=== PATIENT | male | born 1970 | race Caucasian/White ===

== ENCOUNTER 2024-04-03 15:00 | Emergency (ER) | payer BC ==
[2024-04-03 17:03] VITALS: TEMP 98.3; O2SAT 97
--- NOTE | 2024-04-03 17:19 | ERPHSYRPT ---
- History of Present Illness Time Seen by Provider: 04/03/24 17:19 Source: patient Exam Limitations: no limitations Patient Subjective Stated Complaint: Pt. states, "I've been fighting this cough since 03/31 and it just won't go away. My ribs are sore." Triage Nursing Assessment: A&Ox3, skin P/W/D resp even unlabored, in NAD, sl. SOB Physician History: He presents with flu-like symptoms. His symptoms began the day after Deejay. Initially, he thought he was improving, but symptoms worsened last night. He has experienced a fever for three days, accompanied by episodes of sweating. He is unsure of the exact temperature but describes it as significant enough to cause sweating. He reports soreness in the rib area, likely due to persistent coughing, and experiences mild shortness of breath. He has felt dizzy a few times since the onset of symptoms. He has had a couple of episodes of vomiting and diarrhea, primarily on Thursday night, with diarrhea occurring on the first day of symptoms but not since. He is currently taking Mucinex pills and liquid, as well as Nyquil. Timing/Duration: day(s) (3) Cough Quality/Degree: moderate, productive cough Possible Cause: no prior episodes Modifying Factors: Improves With: nothing. Worsens With: activity, coughing, deep breath Associated Symptoms: fever, chills, chest pain/soreness, cough, shortness of breath Allergies/Adverse Reactions: Penicillins Allergy (Unknown, Verified 06/23/15 02:57) cephalexin [From Keflex] Allergy (Verified 04/03/24 17:04) Home Medications: carvediloL [Carvedilol] 6.25 mg PO DAILY 04/03/24 [History] Hx Tetanus, Diphtheria Vaccination/Date Given: No Hx Influenza Vaccination/Date Given: No Hx Pneumococcal Vaccination/Date Given: No Immunizations Up to Date: No Travel Risk - International Travel Have you traveled outside of the country in past 3 weeks: No - Emerging Infectious Disease Are you exhibiting symptoms associated with any current EIDs: Yes Symptoms: Cough: New Onset - Review of Systems All Other Systems: Reviewed and Negative - Past Medical History Pertinent Past Medical History: Yes Neurological History: No Pertinent History Cardiac History: Hypertension Respiratory History: No Pertinent History Endocrine Medical History: No Pertinent History Musculoskeletal History: Arthritis Other Medical History: HIGH LIVER ENZYMES WITH FURTHER TESTING TO BE COMPLETED. 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 - Social History Smoking Status: Former smoker Exposure to second hand smoke: Yes Drug Use: none Patient Lives Alone: No - Social Determinants of Health Will the patient participate in the screening: Yes Do you worry about a steady place to live?: No Do you have any problems with any of the following?: No known problems In the past 12 months,have you had to go without utilities?: No Transportation Issues: No Has anyone in your support network made you feel unsafe?: No Have you or anyone in your house had to go without enough: No - Nursing Vital Signs Nursing Vital Signs: Initial Vital Signs Temperature 98.3 F 04/03/24 16:53 Pulse Rate 81 04/03/24 16:53 Respiratory Rate 18 04/03/24 16:53 Blood Pressure 144/88 04/03/24 16:53 O2 Sat by Pulse Oximetry 97 04/03/24 16:53 Pain Scale Pain Intensity 0 - Physical Exam General Appearance: no apparent distress Eye Exam: eyes nml inspection Ears, Nose, Throat Exam: normal ENT inspection Neck Exam: normal inspection, supple, full range of motion Respiratory Exam: airway intact, rhonchi, No respiratory distress Cardiovascular Exam: regular rate/rhythm, capillary refill <2 sec Gastrointestinal/Abdomen Exam: soft, No tenderness, No distention, No mass, No guarding Neurologic Exam: alert, oriented x 3, cooperative Skin Exam: normal color, warm, dry, No rash SpO2 Interpretation: normal SpO2: 97 O2 Delivery: Room Air - Course Nursing assessment & vital signs reviewed: Yes - Radiology Exams Chest X-ray Interpretation: Interpreted by me, Pneumonia (bilateral ground glass) Ordered Tests: Active Orders 24 hr Category Date Time Status CHEST 1 VIEW (PORTABLE) Stat Exams 04/03/24 17:18 Completed Medication Summary Discontinued Medications Generic Name Dose Route Start Last Admin Trade Name Freq PRN Reason Stop Dose Admin Hydrocodone Bitart/Acetaminophen 5 ml 04/03/24 17:53 04/03/24 18:02 Hydrocodone/Acetaminophen 5 Ml Udcup PO 04/03/24 17:54 5 ml STAT STA Administration Hydrocodone Bitart/Acetaminophen Confirm 04/03/24 18:01 Hydrocodone/Acetaminophen 5 Ml Udcup Administered 04/03/24 18:02 Dose 5 ml .ROUTE .STK-MED ONE Hydrocodone Bitart/Acetaminophen 5 ml 04/03/24 18:37 04/03/24 18:42 Hydrocodone/Acetaminophen 5 Ml Udcup PO 04/08/24 18:36 15 ml Q6HPRN PRN Administration COUGH Hydrocodone Bitart/Acetaminophen Confirm 04/03/24 18:41 Hydrocodone/Acetaminophen 5 Ml Udcup Administered 04/03/24 18:42 Dose 15 ml .ROUTE .STK-MED ONE Azithromycin 500 mg 04/04/24 10:00 04/03/24 17:48 Azithromycin 250 Mg Tablet PO 05/04/24 09:59 500 mg DAILY SUSAN Administration Azithromycin Confirm 04/03/24 17:47 Azithromycin 250 Mg Tablet Administered 04/03/24 17:48 Dose 500 mg .ROUTE .STK-MED ONE Ketorolac Tromethamine 10 mg 04/03/24 17:19 04/03/24 17:36 Ketorolac Tromethamine 10 Mg Tablet PO 04/03/24 17:20 10 mg STAT ONE Administration Prednisone 60 mg 04/03/24 17:18 04/03/24 17:36 Prednisone 20 Mg Tablet PO 04/03/24 17:19 60 mg STAT ONE Administration Prednisone Confirm 04/03/24 17:24 Prednisone 20 Mg Tablet Administered 04/03/24 17:25 Dose 20 mg .ROUTE .STK-MED ONE Prednisone Confirm 04/03/24 17:25 Prednisone 20 Mg Tablet Administered 04/03/24 17:26 Dose 60 mg .ROUTE .STK-MED ONE Lab/Rad Data: Laboratory Results 04/03/24 Range/Units 17:30 Influenza Type A Ag POSITIVE A (NEGATIVE) Influenza Type B Ag NEGATIVE (NEGATIVE) RSV (PCR) NEGATIVE (NEGATIVE) SARS-CoV-2 (PCR) NEGATIVE (NEGATIVE) - Progress Progress: improved Air Movement: good Progress Note: presents with shortness of breath, cough, and malaise concerning for pneumonia. Workup: CXR, COVID, Flu and RSV Defer lab work at this time given patient well appearing with stable vital signs and without recent hospitalization or care facility stay Given History, Exam, and Workup presentation most consistent with pneumonia. Presentation not consistent with PE, COPD exacerbation, Pneumothorax, TB, Atypical ACS, Esophageal Rupture, Toxic Exposure, Foreign Body Airway Obstruction. Findings: Bilateral ground glass opacities on CXR, + influenza, patient outside window of Tamiflu Rx: Azithromycin 500mg in ER followed by 250mg QD x 4 days, Prednisone 60mg in ER followed by 50mg QD x 4 days. Disposition: Discharge home. Return precautions discussed at bedside and patient in agreement with plan. Prompt follow up with primary care provider advised. Blood Culture(s) Obtained: No Antibiotics given: Yes Counseled pt/family regarding: lab results, diagnosis, need for follow-up, rad results Medical Desision Making - Diagnostic Testing Diagnostic test were ordered, analyzed, and reviewed by me: Yes Radiological Interpretation: Interpreted by me - Risk of complications The pt has a mod risk of morbidity or mortality based on: Need for prescription drug management - Departure Departure Disposition: Home Clinical Impression: Atypical pneumonia, Cough, Influenza A Condition: Good Critical Care Time: No Referrals: AXEL CLAIRE, [facility] [Primary Care Provider] - Follow up/PCP as directed Instructions: Pneumonia, Adult (DC) Prescriptions: Hydrocodone/Acetaminophen [Hydrocodone-Acetamin 2.5-108/5 ml Solution] 5 ml PO Q6H PRN 5 Days #100 ml MDD 20ml PRN Reason: Cough predniSONE [Prednisone] 50 mg PO DAILY 4 Days #4 tablet Azithromycin 250 mg [Zithromax 250 MG TABLET] 250 mg PO DAILY 4 Days #4 tablet
[2024-04-03] MEDS ORDERED: DELTASONE 20 MG ONE ×2 (17:24→17:25)
[2024-04-03] MEDS: TORAdol 10 MG TABLET PO ONE (17:36)
[2024-04-03] MEDS: DELTASONE 20 MG PO ONE (17:36)
[2024-04-03] MEDS ORDERED: Zithromax 250 MG TABLET ONE (17:47)
[2024-04-03] MEDS: Zithromax 250 MG TABLET PO SCH (17:48)
[2024-04-03] MEDS ORDERED: HYDROCODONE-ACETAMIN 2.5-108/5 ML SOLUTION ONE ×2 (18:01→18:41)
[2024-04-03] MEDS: HYDROCODONE-ACETAMIN 2.5-108/5 ML SOLUTION PO STA (18:02)
[2024-04-03 18:21] LABS: INFLUENZA B NEGATIVE (NEGATIVE); RESPIRATORY SYNCTIAL VIRUS NEGATIVE (NEGATIVE); SARS-CoV-2 Xpert Express NEGATIVE (NEGATIVE)
[2024-04-03 18:22] LABS: INFLUENZA A POSITIVE (NEGATIVE)
[2024-04-03] MEDS: HYDROCODONE-ACETAMIN 2.5-108/5 ML SOLUTION PO PRN (18:42)
[2024-04-03 18:55] VITALS: BP 113/76; PULSE 80; RESP 19
--- NOTE | 2024-04-03 19:20 | XRAY ---
Indication: Cough. Comparison: November 04, 2021 Portable apical lordotic chest again demonstrates scattered bilateral calcified granulomas. Heart not enlarged. Bony thorax intact. No new/acute findings.
== END 2024-04-03 18:56 | disposition home or self-care (01) ==
LOC: ED 15:00
DX: J10.00 Influenza due to other identified influenza virus with unspecified type of pneumonia (principal); R05.9 Cough, unspecified; R06.02 Shortness of breath; R42 Dizziness and giddiness; R07.9 Chest pain, unspecified
CPT/HCPCS: 0241U; 71045; 99284; 99283; A9270-GY

== ENCOUNTER 2024-04-05 12:08 | Emergency (ER) | payer BC ==
[2024-04-05 12:18] VITALS: TEMP 97.7
[2024-04-05 12:45] LABS: Absolute Neutrophil Ct (ANC) 11.91 x10^3/uL (1.78-5.38); BASOPHIL % 0.1 % (0.2-1.2); Basophil (Absolute #) 0.02 x10^3/uL (0.01-0.08); Eosinophil % 0.3 % (0.8-7.0); Eosinophil (Absolute #) 0.04 x10^3/uL (0.04-0.54); Hematocrit 45.9 % (40.1-51.0); Hemoglobin 15.3 g/dL (13.7-17.5); IMMATURE GRAN # 0.06 x10^3u/L (0.001-0.031); IMMATURE GRAN % 0.4 % (0.001-0.429); Lymphocytes % 6.6 % (21.8-53.1); Mean Cell Volume 84.8 fL (79.0-92.2); Mean Corpuscular Hemoglobin 28.3 pg (25.7-32.2); Mean Corpuscular Hgb Concent. 33.3 g/dL (32.3-36.5); Monocyte (Absolute #) 0.78 x10^3/uL (0.30-0.82); Monocytes % 5.7 % (5.3-12.2); Neutrophil % 86.9 % (34.0-67.9); Platelet Count 274 x10^3/uL (163-337); Red Blood Count 5.41 x10^6/uL (4.63-6.08); Red Cell Distribution Width 12.5 % (11.6-14.4); White Blood Count 13.7 x10^3/uL (4.23-9.07)
[2024-04-05] MEDS ORDERED: DUONEB 0.5-3 MG/3 ml Neb IH ONE (12:51)
--- NOTE | 2024-04-05 12:52 | XRAY ---
Indication: Short of breath. Comparison: April 03, 2024 Portable apical lordotic chest again demonstrates incidental bilateral calcified granulomas. No focal infiltrate, consolidation, or large effusion. Heart not enlarged. Bony thorax intact. Impression: Nonacute chest with chronic features.
[2024-04-05] MEDS: DUONEB 0.5-3 MG/3 ml Neb IH ONE (12:54)
[2024-04-05 13:02] VITALS: PULSE 70; RESP 18; O2SAT 97
[2024-04-05 13:04] LABS: ALBUMIN 4.4 g/dL (3.5-5.0); ANION GAP 14.7 MEQ/L (5-15); BILIRUBIN,TOTAL 0.3 mg/dL (0.2-1.3); Calcium 9.4 mg/dL (8.4-10.2); Creatinine 1 0.69 mg/dL (0.66-1.25); EST GLOMERULAR FILTRATION RATE 109.3 ML/MIN; Potassium 4.2 mmol/L (3.5-5.1); Total Protein 7.6 g/dL (6.3-8.2)
--- NOTE | 2024-04-05 13:40 | ERPHSYRPT ---
- History of Present Illness Time Seen by Provider: 04/05/24 12:20 Source: patient Exam Limitations: no limitations Patient Subjective Stated Complaint: was here on Thursday and diagnosed with pneumnia and felt better last night but woke up this morning and cough was worse Triage Nursing Assessment: Pt brought to the ER by his , hypertensive, rates rib pain when he coughs as 5/10, pulses normal, wheezing heard from across the room, denies chest pain Physician History: 54-year-old is evaluated in the ER for flulike symptoms 2 days ago and was prescribed steroid along with cough syrup and Z-Alexy. Patient was positive for influenza A. Patient has been having symptoms for the last 4 days. Patient reports he was feeling better and had a good sleep last night but this morning he is having more cough and some hoarseness for the last few hours. No significant aggravating or relieving factor. No chest pain or palpitations. No fever or chills reported. Has no history of asthma/COPD. Patient has some hoarseness in the throat and minimal wheezing. He is given DuoNeb and on reevaluation his hoarseness and wheezing is improved. Patient was room air oxygen saturation around 95 to 96% on presentation. No tachypnea or tachycardia. Has a white count of 13 which is not significantly elevated with the fact that patient is on steroids. He has nontoxic appearance. Chest x-ray is negative. Lactate is normal. Patient's symptoms does not seem to be cardiac etiology at all. Not suggestive of PE but more of a infectious/viral etiology. I do not think patient needs to be admitted or any other workup is needed. I would give him a prescription of albuterol to use along with current medications. Disc ussed signs symptoms of worsening needing return to ER which he seems understanding. Stable for discharge. Allergies/Adverse Reactions: Penicillins Allergy (Unknown, Verified 04/05/24 12:18) cephalexin [From Keflex] Allergy (Verified 04/05/24 12:18) Home Medications: carvediloL [Carvedilol] 6.25 mg PO DAILY 04/03/24 [History] Hx Tetanus, Diphtheria Vaccination/Date Given: No Hx Influenza Vaccination/Date Given: No Hx Pneumococcal Vaccination/Date Given: No Travel Risk - International Travel Have you traveled outside of the country in past 3 weeks: No - Emerging Infectious Disease Are you exhibiting symptoms associated with any current EIDs: Yes Symptoms: Cough: New Onset, Shortness of Breath - Review of Systems Constitutional: Fatigue Eyes: No Symptoms Ears, Nose, & Throat: Throat Pain Respiratory: Cough, Wheezing Cardiac: No Symptoms Abdominal/Gastrointestinal: No Symptoms Musculoskeletal: Myalgias Skin: No Symptoms Neurological: No Symptoms Psychological: No Symptoms Endocrine: No Symptoms - Past Medical History Pertinent Past Medical History: Yes Neurological History: No Pertinent History Cardiac History: Hypertension Respiratory History: No Pertinent History Endocrine Medical History: No Pertinent History Musculoskeletal History: Arthritis Other Medical History: HIGH LIVER ENZYMES 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 - Social History Smoking Status: Former smoker Exposure to second hand smoke: Yes Drug Use: none Patient Lives Alone: No - Social Determinants of Health Will the patient participate in the screening: Yes Do you worry about a steady place to live?: No Do you have any problems with any of the following?: No known problems In the past 12 months,have you had to go without utilities?: No Transportation Issues: No Has anyone in your support network made you feel unsafe?: No Have you or anyone in your house had to go without enough: No - Nursing Vital Signs Nursing Vital Signs: Initial Vital Signs Temperature 97.7 F 04/05/24 12:09 Pulse Rate 78 04/05/24 12:09 Blood Pressure 157/82 04/05/24 12:09 O2 Sat by Pulse Oximetry 94 L 04/05/24 12:09 Pain Scale Pain Intensity 5 - Physical Exam General Appearance: no apparent distress, anxiety Eye Exam: PERRL/EOMI Ears, Nose, Throat Exam: pharyngeal erythema Neck Exam: normal inspection, non-tender, supple, full range of motion Respiratory Exam: normal breath sounds, wheezing Cardiovascular Exam: regular rate/rhythm, normal heart sounds Gastrointestinal/Abdomen Exam: soft, normal bowel sounds, No tenderness Back Exam: normal inspection Extremity Exam: normal inspection, normal range of motion, pelvis stable Neurologic Exam: alert, oriented x 3, cooperative, 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 as tested Skin Exam: normal color SpO2 Interpretation: normal SpO2: 97 O2 Delivery: Room Air Ordered Tests: Active Orders 24 hr Category Date Time Status CHEST 1 VIEW (PORTABLE) Stat Exams 04/05/24 12:28 Completed CBC W DIFF Stat Lab 04/05/24 12:30 Completed CMP Stat Lab 04/05/24 12:28 Completed Lactic Acid Stat Lab 04/05/24 12:28 Completed Respiratory Therapy Assessment DAILY RT 04/05/24 12:59 Completed Medication Summary Discontinued Medications Generic Name Dose Route Start Last Admin Trade Name David PRN Reason Stop Dose Admin Albuterol/Ipratropium 3 ml 04/05/24 12:28 04/05/24 12:54 Ipratropium/Albuterol Sulfate 3 Ml Ampul.Neb IH 04/05/24 12:29 3 ml STAT ONE Administration Albuterol/Ipratropium Confirm 04/05/24 12:51 Ipratropium/Albuterol Sulfate 3 Ml Ampul.Neb Administered 04/05/24 12:52 Dose 3 ml IH .STK-MED ONE Lab/Rad Data: Laboratory Result Diagrams 04/05/24 12:30 04/05/24 12:28 Laboratory Results 04/05/24 04/05/24 04/05/24 Range/Units 12:30 12:28 12:28 WBC 13.7 H (4.23-9.07) x10^3/uL RBC 5.41 (4.63-6.08) x10^6/uL Hgb 15.3 (13.7-17.5) g/dL Hct 45.9 (40.1-51.0) % MCV 84.8 (79.0-92.2) fL MCH 28.3 (25.7-32.2) pg MCHC 33.3 (32.3-36.5) g/dL RDW 12.5 (11.6-14.4) % Plt Count 274 (163-337) x10^3/uL MPV 10.0 (9.4-12.4) fL Gran % 86.9 H (34.0-67.9) % Immature Gran % (Auto) 0.4 (0.001-0.429) % Nucleat RBC Rel Count 0.0 (0.00-0.2) % Eos # (Auto) 0.04 (0.04-0.54) x10^3/uL Immature Gran # (Auto) 0.06 H (0.001-0.031) x10^3u/L Absolute Lymphs (auto) 0.90 L (1.32-3.57) x10^3/uL Absolute Monos (auto) 0.78 (0.30-0.82) x10^3/uL Absolute Nucleated RBC 0.00 (0.00-0.012) x10^3u/L Lymphocytes % 6.6 L (21.8-53.1) % Monocytes % 5.7 (5.3-12.2) % Eosinophils % 0.3 L (0.8-7.0) % Basophils % 0.1 L (0.2-1.2) % Absolute Granulocytes 11.91 H (1.78-5.38) x10^3/uL Basophils # 0.02 (0.01-0.08) x10^3/uL Sodium 133 L (135-145) mmol/L Potassium 4.2 (3.5-5.1) mmol/L Chloride 102 (98-107) mmol/L Carbon Dioxide 21 L (22-30) mmol/L Anion Gap 14.7 (5-15) MEQ/L BUN 14 (9-20) mg/dL Creatinine 0.69 (0.66-1.25) mg/dL Estimated GFR 109.3 ML/MIN Glucose 216 H (74-106) mg/dL Lactic Acid 1.4 (0.4-2.0) Calcium 9.4 (8.4-10.2) mg/dL Total Bilirubin 0.30 (0.2-1.3) mg/dL AST 48 (17-59) U/L ALT 67 H (0-50) U/L Alkaline Phosphatase 86 (38-126) U/L Serum Total Protein 7.6 (6.3-8.2) g/dL Albumin 4.4 (3.5-5.0) g/dL - Progress Progress: improved, re-examined Air Movement: good Progress Note: 04/05/24 13:53 54-year-old is evaluated in the ER for flulike symptoms 2 days ago and was prescribed steroid along with cough syrup and Z-Alexy. Patient was positive for influenza A. Patient has been having symptoms for the last 4 days. Patient reports he was feeling better and had a good sleep last night but this morning he is having more cough and some hoarseness for the last few hours. No significant aggravating or relieving factor. No chest pain or palpitations. No fever or chills reported. Has no history of asthma/COPD. Patient has some hoarseness in the throat and minimal wheezing. He is given DuoNeb and on reevaluation his hoarseness and wheezing is improved. Patient was room air oxygen saturation around 95 to 96% on presentation. No tachypnea or tachycardia. Has a white count of 13 which is not significantly elevated with the fact that patient is on steroids. He has nontoxic appearance. Chest x-ray is negative. Lactate is normal. Patient's symptoms does not seem to be cardiac etiology at all. Not suggestive of PE but more of a infectious/viral etiology. I do not think patient needs to be admitted or any other workup is needed. I would give him a prescription of albuterol to use along with current medications. Discussed signs symptoms of worsening needing return to ER which he seems understanding. Stable for discharge. Blood Culture(s) Obtained: No Antibiotics given: No Counseled pt/family regarding: lab results, diagnosis, need for follow-up, rad results Medical Desision Making - Independent Historian Additional History obtained from: Spouse - Diagnostic Testing Diagnostic test were ordered, analyzed, and reviewed by me: Yes Radiological Interpretation: Reviewed by me - Risk of complications The pt has a mod risk of morbidity or mortality based on: Need for prescription drug management - Departure Departure Disposition: Home Clinical Impression: Viral URI with cough, Influenza A Condition: Stable Critical Care Time: No Referrals: AXEL CLAIRE BATH STEWARD [Primary Care Provider] - Follow up/PCP as directed Instructions: Bronchitis in adults - ED discharge instructions Additional Instructions: Continue with your current medications. Follow-up with primary care for reevaluation in 1 to 2 days. Take cough syrup and inhaler as needed. Return to ER for any worsening. Prescriptions: Albuterol Sulfate [Albuterol Sulfate Hfa] 8.5 gm IH Q6H PRN 15 Days #1 inh PRN Reason: Cough
[2024-04-05 13:43] VITALS: BP 138/90
== END 2024-04-05 13:47 | disposition home or self-care (01) ==
LOC: ED 12:08
DX: J10.1 Influenza due to other identified influenza virus with other respiratory manifestations (principal); R05.1 Acute cough; I10 Essential (primary) hypertension; Z79.899 Other long term (current) drug therapy
CPT/HCPCS: 36415; 71045; 80053; 83605; 85025; 94640; 99282; 99284; A9270-GY